=== PATIENT | male | born 1990 ===

== ENCOUNTER 2020-11-25 19:08 | Emergency (ER) | payer SELFPAY ==
[~2020-11-25] VITALS: Ht 172.7 cm; Wt 68.2 kg
[2020-11-25 19:10] VITALS: BP 115/64
== END 2020-11-25 23:39 | disposition left against medical advice (07) ==
LOC: EMS 19:10
DX: R19.7 Diarrhea, unspecified (principal); Z53.21 Procedure and treatment not carried out due to patient leaving prior to being seen by health care provider